=== PATIENT | female | born 1985 | race Caucasian/White ===

== ENCOUNTER 2018-11-01 08:10 | Inpatient (IN) | payer OTHER ==
[2018-11-01] MEDS: DEXTROSE 5%-LACTATED RINGERS 1,000 ML IV SCH (08:45)
[2018-11-01] MEDS ORDERED: BUTORPHANOL TARTRATE 1 MG/ML VIAL IVPUSH PRN (09:18)
[2018-11-01] MEDS ORDERED: PROMETHAZINE HCL 25 MG/1 ML VIAL IVPUSH ONE (09:18)
[2018-11-01 09:46] VITALS: BMI 28.1
[2018-11-01] MEDS ORDERED: AMPICILLIN - 2 GM in SODIUM CHLORIDE 100 ML IVPB ONE (10:00)
[2018-11-01] MEDS ORDERED: AMPICILLIN SODIUM 2 GM VIAL ONE (10:19)
[2018-11-01] MEDS: ELECTROLYTE-148 SOLN 1,000 ML IV SCH (10:31)
[2018-11-01 10:33] LABS: BASO % 0.2 % (0-2.0); HEMATOCRIT 40.1 % (32.4-45.2); HEMOGLOBIN 13.4 GM/dL (10.7-15.3); LYMPH % 9.8 % (8-40); MCH 28.6 pg (25.7-33.7); MCHC 33.5 g/dl (32.0-36.0); MEAN CELL VOLUME 85.5 fl (80-96); MEAN PLT VOLUME 6.9 fl (7.5-11.1); MONO % 4.5 % (3.8-10.2); NEUT % 85.5 % (42.8-82.8); PLATELET COUNT 194 K/MM3 (134-434); RBC 4.69 M/mm3 (3.60-5.2); RDW 14.2 % (11.6-15.6); WHITE BLOOD COUNT 11.4 K/mm3 (4.0-10.0)
--- NOTE | 2018-11-01 10:35 | HP ---
Past Medical History - Primary Care Physician PCP:: Conner López - Admission Chief Complaint: 40 weeks, labor History of Present Illness: 33 yo f 40,2 weeks c/o contraction, cx 3 cm 100 vx -2, mi, fhr cat 1, irregular contraction. hx of AFIB , asymptomatic , no chest pain or shortness of breath.has been followed by her external relations director. History Source: Patient Limitations to Obtaining History: No Limitations - Past Medical History Cardiovascular: Yes: AFIB ...: 1 ...Para: 0 ...Term: 0 ...: 0 ...Spon : 0 ...Induced : 0 ...Multiple Gestation: 0 ...LMP: 01/23/18 ... Weeks Gestation by Dates: 40.2 ...EDC by Dates: 10/30/18 ...EDC by Sono: 10/30/18 - Past Surgical History Hx Myomectomy: No Hx Transabdominal Cerclage: No - Smoking History Smoking history: Never smoked Have you smoked in the past 12 months: No - Alcohol/Substance Use Hx Alcohol Use: No History of Substance Use: reports: None - Social History Usual Living Arrangement: Yes: With Spouse History of Recent Travel: No Home Medications - Allergies Allergies/Adverse Reactions: Allergies Allergy/AdvReac Type Severity Reaction Status Date / Time No Known Allergies Allergy Verified 11/01/18 09:26 - Home Medications Home Medications: Ambulatory Orders Vit 93/Iron Fum/Folic [ Formula Tablet] 1 tablet PO DAILY 10/31 Review of Systems - Review of Systems Constitutional: reports: No Symptoms Eyes: reports: No Symptoms HENT: reports: No Symptoms Neck: reports: No Symptoms Cardiovascular: reports: No Symptoms Respiratory: reports: No Symptoms Gastrointestinal: reports: No Symptoms Genitourinary: reports: No Symptoms Breasts: reports: No Symptoms Reported Musculoskeletal: reports: No Symptoms Integumentary: reports: No Symptoms Neurological: reports: No Symptoms Endocrine: reports: No Symptoms Hematology/Lymphatic: reports: No Symptoms Psychiatric: reports: No Symptoms Physical Exam - Maternity Vital Signs: Vital Signs Temperature 98.2 F 11/01/18 09:28 Pulse Rate 80 11/01/18 09:28 Respiratory Rate 20 11/01/18 09:28 Blood Pressure 123/79 11/01/18 09:28 O2 Sat by Pulse Oximetry (%) 100 11/01/18 09:28 Constitutional: Yes: Well Nourished, No Distress, Calm Eyes: Yes: WNL, Conjunctiva Clear, EOM Intact HENT: Yes: WNL, Atraumatic, Normocephalic Neck: Yes: WNL, Supple, Trachea Midline Cardiovascular: Yes: WNL, Regular Rate and Rhythm Breast(s): Yes: WNL - Abdominal Exam/OB Fundal Height: 38 Number of Fetuses: Single Presentation: Vertex Contractions: Yes Regularity: Irregular Monitor Mode: External Heart Rate Location: [facility] Category: I Accelerations: Uniform Decelerations: None - Vaginal Exam/OB Vaginal Bleediing: No Speculum Exam: No Dilatation (cm): 3 cm Effacement (%): 100 Amniotic Membrane Status: Intact Presentation: Vertex/Position Station: -2 - Physical Exam Musculoskeletal: Yes: WNL Extremities: Yes: WNL Edema: LLE: Trace, RLE: Trace Psychiatric: Yes: Alert Hemorrhage Risk Assessment - Risk Factors Medium Risk Factors: Yes: None High Risk Factors: Yes: None Risk Score: 1 Risk Level: Medium Risk Problem List - Problems (1) Post term over 40 weeks Code(s): O48.0 - POST-TERM (2) Labor established Code(s): NDC0252 - Assessment/Plan admit EKG early epidural anesthesia for pain control GBS positve, iv antibiotics if contraction irregular advised pitocin
[2018-11-01 10:47] LABS: INR 1.02 (0.83-1.09)
[2018-11-01 10:59] LABS: BLOOD UREA NITROGEN 4.8 mg/dL (7-18); CALCIUM 9.1 mg/dL (8.5-10.1); CREATININE 0.6 mg/dL (0.55-1.3); POTASSIUM 4.1 mmol/L (3.5-5.1)
[2018-11-01] MEDS ORDERED: NALOXONE HCL 0.4 MG/ML VIAL IVPUSH PRN (11:17)
[2018-11-01] MEDS ORDERED: LIDO 2%/EPI 1:200000 PRESRVFRE (20 ML SDVIAL) ONE ×2 (11:20→16:15)
[2018-11-01] MEDS ORDERED: FENTANYL/BUPIVACAINE/NS/PF - PCEA - 50 ML DISP.SYRIN EP ONE ×4 (11:26→23:40)
[2018-11-01] MEDS ORDERED: FENTANYL/BUPIVACAINE/NS/PF - PCEA - 50 ML DISP.SYRIN EP SCH (11:30)
[2018-11-01] MEDS ORDERED: AMPICILLIN SODIUM 1 GM VIAL ONE ×3 (13:15→21:57)
[2018-11-01] MEDS: AMPICILLIN - 1 GM in SODIUM CHLORIDE 100 ML IVPB SCH ×3 (13:25→21:59)
[2018-11-01] MEDS ORDERED: BUPIVACAINE HCL/PF 2.5 MG/ML - 30 ML VIAL IJ ONE (15:41)
[2018-11-01] MEDS ORDERED: BUPIVACAINE HCL/PF 0.5% (5 MG/ML) 30 ML VIAL IJ ONE (15:42)
--- NOTE | 2018-11-01 16:40 | EKG ---
Test Reason : Blood Pressure : / mmHG Vent. Rate : 080 BPM Atrial Rate : 080 BPM P-R Int : 138 ms QRS Dur : 114 ms QT Int : 382 ms P-R-T Axes : 075 -39 019 degrees QTc Int : 440 ms NORMAL SINUS RHYTHM WITH SINUS ARRHYTHMIA LEFT AXIS DEVIATION RIGHT BUNDLE BRANCH BLOCK ABNORMAL ECG Confirmed by MD STEFANIE, AUBRIE ([id number]) on 11/01/2018 4:40:25 PM Referred By: Confirmed By:AUBRIE WATTS MD
[2018-11-01] MEDS ORDERED: OXYTOCIN 30 UNITS in 0.9% NS 30 UNIT/500 ML INFUS.BAG IVPB SCH (19:00)
[2018-11-01] MEDS ORDERED: OXYTOCIN 30 UNITS in 0.9% NS 30 UNIT/500 ML INFUS.BAG IVPB ONE (19:24)
--- NOTE | 2018-11-01 19:36 | PN ---
Progress Note (short form) - Note Progress Note: cx 5 cm, 80 vx -i mi, arom clear , fhr cat 1, contraction irregular q 4 min , advised pitocin , risks discussed Problem List - Problems (1) Post term over 40 weeks Code(s): O48.0 - POST-TERM (2) Labor established Code(s): NWS9012 -
[2018-11-01] MEDS ORDERED: OXYTOCIN 20 UNITS in 0.9% NS 20 UNIT/1,000 ML INFUS.BAG IV ONE (23:55)
[2018-11-01] MEDS ORDERED: LIDOCAINE HCL 1% PRESERVATIVE FREE - 30ML VIAL ONE (23:56)
[2018-11-02] MEDS ORDERED: AMPICILLIN SODIUM 1 GM VIAL ONE (01:29)
[2018-11-02] MEDS ORDERED: METHYLERGONOVINE MALEATE 0.2 MG/1 ML AMP IM PRN (01:49)
[2018-11-02] MEDS ORDERED: WITCH HAZEL 50% (TUCKS) 40 PAD/JAR PAD TP PRN (01:49)
[2018-11-02] MEDS ORDERED: BENZOCAINE 20% 57 GM BOTTLE TP PRN (01:49)
[2018-11-02] MEDS ORDERED: BISACODYL 10 MG SUPP.RECT RC PRN (01:49)
[2018-11-02] MEDS ORDERED: BENZOCAINE 28 GM HEMORRHOIDAL OINTMENT TP PRN (01:49)
[2018-11-02] MEDS: AMPICILLIN - 1 GM in SODIUM CHLORIDE 100 ML IVPB SCH ×2 (02:00→06:10)
[2018-11-02] MEDS ORDERED: D5W-LR W/ 20 UNITS OXYTOCIN 1,000 ML IV SCH (02:00)
[2018-11-02] MEDS: OXYTOCIN 20 UNITS in 0.9% NS 20 UNIT/1,000 ML INFUS.BAG IV SCH (04:30)
--- NOTE | 2018-11-02 08:52 | PN ---
Delivery - Delivery Vaginal Delivery: Spontaneous (cx full, episiotome done , head deliverd , ABRIL, ant and posterior shoulder with no difficulty , babu boy , 9/9 , placetal complete ,episiotomy in 3 layers ,no complication, ebl 300cc) Type of Anesthesia: Epidural Episiotomy/Laceration: Right Mediolateral EBL (cc): 300 Delivery, Single - Stages of Labor Date 1st Stage Initiatied: 11/01/18 Time 1st Stage Initiated: 19:15 Date 2nd Stage Initiated: 11/02/18 Time 2nd Stage Initiated: 03:38 Date of Delivery: 11/02/18 Time of Delivery: 03:49 Time Placenta Delivered: 03:52 - Condition of Senior Policy Associate/Resident Associate Present: No Infant Gender: Female Weight: 7 lb 8 oz Position: OA Total Hours ROM (Hrs/Mins): 8H34M - 1 Minute Total Score: 9 5 Minutes Total Score: 9 - Feeding Plan Initial Plan: Elected not to breastfeed exclusively throughout hospitalization
[2018-11-02] MEDS: FERROUS SO4 325 MG TABLET (FP) PO SCH ×2 (09:25→21:59)
[2018-11-02] MEDS: PRENATAL VITAMINS W/ FOLIC ACID TABLET (FP) PO SCH (09:25)
[2018-11-02] MEDS: ACETAMINOPHEN 325 MG TABLET (FP) PO PRN (10:50)
[2018-11-02] MEDS: IBUPROFEN 600 MG TABLET (FP) PO PRN (10:50)
[2018-11-03] MEDS: IBUPROFEN 600 MG TABLET (FP) PO PRN ×2 (02:50→22:23)
[2018-11-03] MEDS: ACETAMINOPHEN 325 MG TABLET (FP) PO PRN ×2 (02:50→22:22)
[2018-11-03] MEDS: DEXTROSE 5%-LACTATED RINGERS 1,000 ML IV SCH (02:52)
[2018-11-03] MEDS: ELECTROLYTE-148 SOLN 1,000 ML IV SCH (02:52)
[2018-11-03] MEDS: OXYTOCIN 20 UNITS in 0.9% NS 20 UNIT/1,000 ML INFUS.BAG IV SCH (02:53)
--- NOTE | 2018-11-03 07:15 | PN ---
Post Progress Note - Subjective Subjective: ambulating, tolerating PO, lochia decreased, breast feeding Post Day: 1 Type of Delivery: Vital Signs: Vital Signs Temperature 98 F 11/03/18 06:00 Pulse Rate 87 11/03/18 06:00 Respiratory Rate 18 11/03/18 06:00 Blood Pressure 127/74 11/03/18 06:00 O2 Sat by Pulse Oximetry (%) 99 11/02/18 03:45 Breast Exam: Yes: Other (deferred) Uterus: Yes: Fundus Firm Abdomen/GI: Yes: Abdomen soft Lochia: Yes: Serosa Lochia, amount: Small Extremities: Yes: Calves non-tender Activity: Ambulating - Labs Labs: CBC WBC 11.4 K/mm3 (4.0-10.0) H 11/01/18 10:10 RBC 4.69 M/mm3 (3.60-5.2) 11/01/18 10:10 Hgb 13.4 GM/dL (10.7-15.3) 11/01/18 10:10 Hct 40.1 % (32.4-45.2) 11/01/18 10:10 MCV 85.5 fl (80-96) 11/01/18 10:10 MCH 28.6 pg (25.7-33.7) 11/01/18 10:10 MCHC 33.5 g/dl (32.0-36.0) 11/01/18 10:10 RDW 14.2 % (11.6-15.6) 11/01/18 10:10 Plt Count 194 K/MM3 (134-434) D 11/01/18 10:10 MPV 6.9 fl (7.5-11.1) L 11/01/18 10:10 Absolute Neuts (auto) 9.7 K/mm3 (1.5-8.0) H 11/01/18 10:10 Neutrophils % 85.5 % (42.8-82.8) H D 11/01/18 10:10 Lymphocytes % 9.8 % (8-40) D 11/01/18 10:10 Monocytes % 4.5 % (3.8-10.2) 11/01/18 10:10 Eosinophils % 0.0 % (0-4.5) D 11/01/18 10:10 Basophils % 0.2 % (0-2.0) 11/01/18 10:10 Nucleated RBC % 0 % (0-0) 11/01/18 10:10 Assessment/Plan PPD # 1 in stable condition doing well. -Continue PP care -Anticipate discharge on PPD # 2
[2018-11-03 08:26] LABS: BASO % 0.3 % (0-2.0); EOS % 0.2 % (0-4.5); HEMATOCRIT 30.9 % (32.4-45.2); HEMOGLOBIN 10.4 GM/dL (10.7-15.3); LYMPH % 11.3 % (8-40); MCH 28.4 pg (25.7-33.7); MCHC 33.5 g/dl (32.0-36.0); MEAN CELL VOLUME 84.9 fl (80-96); MONO % 7.1 % (3.8-10.2); NEUT % 81.1 % (42.8-82.8); PLATELET COUNT 174 K/MM3 (134-434); RBC 3.64 M/mm3 (3.60-5.2); RDW 14.7 % (11.6-15.6); WHITE BLOOD COUNT 17.4 K/mm3 (4.0-10.0)
[2018-11-03] MEDS: PRENATAL VITAMINS W/ FOLIC ACID TABLET (FP) PO SCH (09:51)
[2018-11-03] MEDS: FERROUS SO4 325 MG TABLET (FP) PO SCH ×2 (09:51→22:24)
--- NOTE | 2018-11-03 09:58 | PN ---
Progress Note (short form) - Note Progress Note: has herpes labialis , rx valtrex precaution given Problem List - Problems (1) Post term over 40 weeks Code(s): O48.0 - POST-TERM (2) Labor established Code(s): RGG5351 -
[2018-11-03] MEDS: valACYclovir HCL 1000 MG TABLET PO SCH ×2 (11:06→22:24)
[2018-11-03] MEDS ORDERED: SENNOSIDES/DOCUSATE COMBO (SENNA PLUS) TABLET (UD) PO PRN (22:00)
[2018-11-04 09:18] VITALS: BP 119/78; PULSE 76; TEMP 98.1
[2018-11-04] MEDS: PRENATAL VITAMINS W/ FOLIC ACID TABLET (FP) PO SCH (09:40)
[2018-11-04] MEDS: valACYclovir HCL 1000 MG TABLET PO SCH (09:40)
[2018-11-04] MEDS: FERROUS SO4 325 MG TABLET (FP) PO SCH (09:40)
--- NOTE | 2018-11-04 12:21 | PN ---
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 No: Engorged Uterus: Yes: Fundus Firm, Fundus below umbilicus, Non-tender Lochia: Yes: Rubra Lochia, amount: Moderate Extremities: Yes: Calves non-tender Perineum: Yes: Intact, Laceration (c/o soreness. healing well ) Activity: Ambulating - Labs Labs: CBC WBC 17.4 K/mm3 (4.0-10.0) H 11/03/18 07:48 RBC 3.64 M/mm3 (3.60-5.2) 11/03/18 07:48 Hgb 10.4 GM/dL (10.7-15.3) L 11/03/18 07:48 Hct 30.9 % (32.4-45.2) L D 11/03/18 07:48 MCV 84.9 fl (80-96) 11/03/18 07:48 MCH 28.4 pg (25.7-33.7) 11/03/18 07:48 MCHC 33.5 g/dl (32.0-36.0) 11/03/18 07:48 RDW 14.7 % (11.6-15.6) 11/03/18 07:48 Plt Count 174 K/MM3 (134-434) 11/03/18 07:48 MPV 7.0 fl (7.5-11.1) L 11/03/18 07:48 Absolute Neuts (auto) 14.1 K/mm3 (1.5-8.0) H 11/03/18 07:48 Neutrophils % 81.1 % (42.8-82.8) 11/03/18 07:48 Lymphocytes % 11.3 % (8-40) 11/03/18 07:48 Monocytes % 7.1 % (3.8-10.2) 11/03/18 07:48 Eosinophils % 0.2 % (0-4.5) D 11/03/18 07:48 Basophils % 0.3 % (0-2.0) 11/03/18 07:48 Nucleated RBC % 0 % (0-0) 11/03/18 07:48 Problem List - Problems (1) care and examination Code(s): Z39.2 - ENCOUNTER FOR ROUTINE FOLLOW-UP Assessment/Plan stable Plan pp discharge instructions given. discharge today
== END 2018-11-04 10:55 | disposition home or self-care (01) | DRG 560 ==
LOC: JDEL 08:10 → JLDR 08:40 → J3W 11-02 05:54
PROVIDERS: ADMIT Obstetrics & Gynecology; ATTEND Obstetrics & Gynecology
PROC: 10E0XZZ Delivery of Products of Conception, External Approach (ICD-10-PCS; principal; 2018-11-02)
PROC: 0W8NXZZ Division of Female Perineum, External Approach (ICD-10-PCS; 2018-11-02)
PROC: 3E0334Z Introduction of Serum, Toxoid and Vaccine into Peripheral Vein, Percutaneous Approach (ICD-10-PCS; 2018-11-02)
DX: O48.0 Post-term pregnancy (principal); Z3A.40 40 weeks gestation of pregnancy; Z37.0 Single live birth; Z22.330 Carrier of Group B streptococcus; Z29.13 Encounter for prophylactic Rho(D) immune globulin
CPT/HCPCS: 36415; 36600; 59409; 80048; 82803; 85025; 85461; 85610; 85730; 86593; 86850; 86900; 86901; 86999; 93005; 93010

== ENCOUNTER 2022-04-19 07:54 | Observation (INO) | payer OTHER ==
[2022-04-19] MEDS ORDERED: SODIUM CHLORIDE 1,000 ML IV STA (08:42)
[2022-04-19] MEDS ORDERED: ASPIRIN 81 MG CHEWABLE TABLETS PO ONE (08:42)
[2022-04-19] MEDS ORDERED: ASPIRIN 81 MG CHEWABLE TABLETS ONE (08:47)
[2022-04-19 09:17] LABS: BASO % 0.4 % (0-2.0); EOS % 0.2 % (0-4.5); HEMATOCRIT 44.3 % (32.4-45.2); HEMOGLOBIN 14.8 GM/dL (10.7-15.3); LYMPH % 19.1 % (8-40); MCH 28.1 pg (25.7-33.7); MCHC 33.4 g/dl (32.0-36.0); MEAN CELL VOLUME 84.1 fl (80-96); MEAN PLT VOLUME 7.5 fl (7.5-11.1); MONO % 6.5 % (3.8-10.2); NEUT % 73.8 % (42.8-82.8); PLATELET COUNT 269 10^3/uL (134-434); RBC 5.27 M/mm3 (3.60-5.2); RDW 13.3 % (11.6-15.6); WHITE BLOOD COUNT 9.3 K/mm3 (4.0-10.0)
[2022-04-19 09:22] LABS: INR 1.22 (0.83-1.09); PROTHROMBIN TIME (PATIENT) 14.1 SEC (9.7-13.0)
[2022-04-19 09:25] LABS: ACTIVATED PTT 35.7 SECONDS (25.2-36.5)
[2022-04-19 09:49] LABS: CHLORIDE 110 mmol/L (98-107); SODIUM 141 mmol/L (136-145)
[2022-04-19 09:53] LABS: ALBUMIN 3.6 g/dl (3.4-5.0); ANION GAP 6 MMOL/L (8-16); BLOOD UREA NITROGEN 11.8 mg/dL (7-18); CALCIUM 8.9 mg/dL (8.5-10.1); CO2 25 mmol/L (21-32); GLUCOSE,RANDOM 78 mg/dL (74-106)
[2022-04-19 09:54] LABS: LIPASE 87 U/L (73-393)
[2022-04-19 09:55] LABS: EPI CELLS 31 /uL (0-25.1); HYALINE CASTS 1 /uL (0-3.1); URINE APPEARANCE CLEAR; URINE BACTERIA 363 /uL (0-1359); URINE BILIRUBIN NEGATIVE (NEGATIVE); URINE COLOR YELLOW; URINE GLUCOSE (UA) NEGATIVE (NEGATIVE); URINE KETONE NEGATIVE (NEGATIVE); URINE LEUK ESTERASE 1+ (NEGATIVE); URINE NITRITE NEGATIVE (NEGATIVE); URINE PROTEIN NEGATIVE (NEGATIVE); URINE RBC 8 /uL (0-23.9); URINE UROBILINOGEN 0.2 mg/dL (0.2-1.0); URINE WBC 32 /uL (0-25.8)
[2022-04-19 09:56] LABS: CREATININE 0.7 mg/dL (0.55-1.3); SGPT/ALT 16 U/L (13-61); TOT PROT 7.1 g/dl (6.4-8.2)
[2022-04-19 09:57] LABS: BILIRUBIN,TOTAL 0.7 mg/dL (0.2-1)
[2022-04-19 09:58] LABS: ALK PHOS 80 U/L (45-117); SGOT/AST 10 U/L (15-37)
[2022-04-19] MEDS ORDERED: METOPROLOL TARTRATE 5 MG/5 ML VIAL IVPUSH ONE (14:07)
[2022-04-19] MEDS ORDERED: METOPROLOL TARTRATE 50 MG TABLET (FP) PO SCH (14:15)
[2022-04-19] MEDS ORDERED: METOPROLOL TARTRATE 5 MG/5 ML VIAL ONE (14:22)
[2022-04-19] MEDS ORDERED: METOPROLOL TARTRATE 25 MG TABLET (FP) ONE (14:22)
[2022-04-19 18:33] VITALS: BMI 21.9
[2022-04-19] MEDS: METOPROLOL TARTRATE 25 MG TABLET (FP) PO SCH (21:20)
[2022-04-20] MEDS: METOPROLOL TARTRATE 25 MG TABLET (FP) PO SCH (05:46)
[2022-04-20 07:50] LABS: CALCIUM 8.7 mg/dL (8.5-10.1)
[2022-04-20 07:51] LABS: BLOOD UREA NITROGEN 11.3 mg/dL (7-18)
[2022-04-20 07:55] LABS: CREATININE 0.8 mg/dL (0.55-1.3)
[2022-04-20] MEDS ORDERED: metoPROLOL SUCCINATE 25 MG TAB.SR.24H (FP) PO SCH ×2 (10:00)
[2022-04-20] MEDS ORDERED: ASPIRIN COATED 81 MG TABLET.EC PO SCH (10:00)
[2022-04-20 14:45] VITALS: PULSE 100; RESP 20; TEMP 97.9
[2022-04-20] MEDS ORDERED: metoPROLOL SUCCINATE 25 MG TAB.SR.24H (FP) PO ONE (16:13)
[2022-04-20 17:10] VITALS: BP 100/62
== END 2022-04-20 18:29 | disposition home or self-care (01) ==
LOC: JER 07:54 → JERBED 11:09 → J4W 18:18
PROVIDERS: ADMIT Internal Medicine; ATTEND Internal Medicine
PROC: 3E033GC Introduction of Other Therapeutic Substance into Peripheral Vein, Percutaneous Approach (ICD-10-PCS; principal; 2022-04-19)
PROC: 3E0337Z Introduction of Electrolytic and Water Balance Substance into Peripheral Vein, Percutaneous Approach (ICD-10-PCS; 2022-04-19)
DX: I48.91 Unspecified atrial fibrillation (principal)
CPT/HCPCS: 0241U-QW; 36415; 71045-TC-FY; 80048; 80053; 81003; 83690; 83735; 84443; 84484; 84703; 85025; 85379; 85610; 85730; 87086; 93005; 93010; 93306-TC; 96361; 96374; 99285-25; G0378

== ENCOUNTER 2022-06-03 11:41 | Emergency (ER) | payer OTHER ==
[2022-06-03 11:51] VITALS: TEMP 97.7; BMI 23.0
[2022-06-03 13:06] LABS: BASO % 0.6 % (0-2.0); EOS % 0.2 % (0-4.5); HEMATOCRIT 39.3 % (32.4-45.2); HEMOGLOBIN 13.6 GM/dL (10.7-15.3); LYMPH % 12.4 % (8-40); MCH 28.7 pg (25.7-33.7); MCHC 34.5 g/dl (32.0-36.0); MEAN CELL VOLUME 83.2 fl (80-96); MONO % 7.2 % (3.8-10.2); NEUT % 79.6 % (42.8-82.8); PLATELET COUNT 238 10^3/uL (134-434); RBC 4.73 M/mm3 (3.60-5.2); RDW 14.1 % (11.6-15.6); WHITE BLOOD COUNT 12.7 K/mm3 (4.0-10.0)
[2022-06-03 13:21] LABS: INR 1.21 (0.83-1.09)
[2022-06-03] MEDS ORDERED: metoPROLOL SUCCINATE 25 MG TAB.SR.24H (FP) PO ONE (13:21)
[2022-06-03] MEDS ORDERED: SODIUM CHLORIDE 1,000 ML IV STA (13:21)
[2022-06-03 13:23] LABS: ACTIVATED PTT 34.4 SECONDS (25.2-36.5)
[2022-06-03 13:29] LABS: ALBUMIN 3.6 g/dl (3.4-5.0); CALCIUM 9.5 mg/dL (8.5-10.1)
[2022-06-03 13:30] LABS: BLOOD UREA NITROGEN 12.1 mg/dL (7-18)
[2022-06-03 13:33] LABS: CREATININE 0.6 mg/dL (0.55-1.3)
[2022-06-03 13:34] LABS: BILIRUBIN,TOTAL 0.4 mg/dL (0.2-1); TOT PROT 7.3 g/dl (6.4-8.2)
[2022-06-03 13:38] VITALS: RESP 18
[2022-06-03 14:51] VITALS: BP 118/73; PULSE 95
[2022-06-03] MEDS ORDERED: metoPROLOL SUCCINATE 25 MG TAB.SR.24H (FP) PO SCH (22:00)
== END 2022-06-03 14:40 | disposition home or self-care (01) ==
LOC: JER 11:41
PROC: 3E0337Z Introduction of Electrolytic and Water Balance Substance into Peripheral Vein, Percutaneous Approach (ICD-10-PCS; principal; 2022-06-03)
DX: I48.91 Unspecified atrial fibrillation (principal); R00.2 Palpitations
CPT/HCPCS: 36415; 71046-TC-FY; 80053; 84484; 85025; 85610; 85730; 93005; 93010; 96360; 99284-25

== ENCOUNTER 2023-08-03 20:08 | Emergency (ER) | payer OTHER ==
[2023-08-03 20:16] VITALS: TEMP 98.1; BMI 22.8
[2023-08-03] MEDS ORDERED: KETOROLAC TROMETHAMINE 15 MG/ML VIAL ONE (20:27)
[2023-08-03] MEDS: KETOROLAC TROMETHAMINE 15 MG/ML VIAL IVPUSH ONE (20:29)
[2023-08-03] MEDS ORDERED: FENTANYL CITRATE/PF 50 MCG/ML VIAL ONE (21:04)
[2023-08-03] MEDS ORDERED: PROPOFOL 1,000,000 MCG/100 ML VIAL ONE (21:04)
[2023-08-03] MEDS: LACTATED RINGERS SOLUTION 1000 ML INFUS.BAG IV ONE (21:18)
[2023-08-03] MEDS: PROPOFOL 200 MG/20 ML VIAL IVPUSH ONE ×2 (21:19→21:23)
[2023-08-03 21:58] VITALS: BP 117/82; PULSE 70; RESP 16
== END 2023-08-03 22:00 | disposition home or self-care (01) ==
LOC: JER 20:08
PROC: 0RSJXZZ Reposition Right Shoulder Joint, External Approach (ICD-10-PCS; principal; 2023-08-03)
PROC: 3E033NZ Introduction of Analgesics, Hypnotics, Sedatives into Peripheral Vein, Percutaneous Approach (ICD-10-PCS; 2023-08-03)
PROC: 3E033NZ Introduction of Analgesics, Hypnotics, Sedatives into Peripheral Vein, Percutaneous Approach (ICD-10-PCS; 2023-08-03)
PROC: 3E0333Z Introduction of Anti-inflammatory into Peripheral Vein, Percutaneous Approach (ICD-10-PCS; 2023-08-03)
PROC: 3E033GC Introduction of Other Therapeutic Substance into Peripheral Vein, Percutaneous Approach (ICD-10-PCS; 2023-08-03)
PROC: 3E033GC Introduction of Other Therapeutic Substance into Peripheral Vein, Percutaneous Approach (ICD-10-PCS; 2023-08-03)
DX: S43.004A Unspecified dislocation of right shoulder joint, initial encounter (principal); X50.1XXA Overexertion from prolonged static or awkward postures, initial encounter
CPT/HCPCS: 36415; 73030-TC-RT-FY; 84703; 99284-25